=== PATIENT | female | born 1995 | race African-American/Black ===

== ENCOUNTER 2017-05-09 11:45 | Emergency (ER) | payer MEDICAID ==
[2017-05-09 12:09] LABS: Bilirubin Negative (Negative); Blood, Urine Negative (Negative); Clarity Cloudy (Clear); Glucose, Urine (Dipstick) Negative (Negative); Leukocyte Trace (Negative); Nitrite Negative (Negative); Protein, Urine (Dipstick) Negative (Neg-Trace); Specific Gravity, Urine 1.025 (1.005-1.030)
[2017-05-09 12:18] LABS: Bacteria/HPF 1+ HPF (None Seen); Crystals/HPF 1+ AMORPH PHOS HPF (Negative); RBC/HPF 0-3 HPF (0-3)
[2017-05-09] MEDS ORDERED: Acetaminophen 325 MG TAB ONE (12:26)
[2017-05-09] MEDS ORDERED: Cephalexin 250 MG CAP ONE (12:26)
== END 2017-05-09 12:33 | disposition home or self-care (01) ==
LOC: BURERS 11:45
DX: O9A.212 Injury, poisoning and certain other consequences of external causes complicating pregnancy, second trimester (principal); S39.011A Strain of muscle, fascia and tendon of abdomen, initial encounter; O23.42 Unspecified infection of urinary tract in pregnancy, second trimester; X58.XXXA Exposure to other specified factors, initial encounter
CPT/HCPCS: 81003; 81015; 87086; 99284